=== PATIENT | male | born 1955 | race African-American/Black ===

== ENCOUNTER 2022-09-15 13:06 | Observation (INO) | payer MEDICARE, SELFPAY ==
[2022-09-15] VITALS (21 sets, daily range): BP systolic 130–180; BP diastolic 70–95; PULSE 56–81; RESP 15–22; TEMP 36.2–36.7; O2SAT 97–100; BMI 22.4
--- NOTE | ~2022-09-15 | XR_ITS ---
XR chest 1V portable DATE: 09/15/2022 14:17 INDICATION: Midline chest pain. History of hypertension and myocardial infarction. TECHNIQUE: Portable AP chest on September 15, 2022 at 1408 hours COMPARISON: None FINDINGS: Status post sternotomy and coronary bypass graft surgery. Heart size appears within normal limits. There is aortic arch calcification. There is scattered patchy mild infiltrate and/or atelectasis is noted in the lungs, greater in the lo wer lung zones. No pleural effusion, pulmonary mass congestion or pneumothorax IMPRESSION: Scattered patchy mild bilateral pulmonary infiltrate and/or atelectasis, greater in the l ower lung zones Status post sternotomy and CABG Reviewed, dictated and finalized at location A. IMPRESSION: Scattered patchy mild bilateral pulmonary infiltrate and/or atelect asis, greater in the lower lung zones Status post sternotomy and CABG
--- NOTE | 2022-09-15 13:11 | ECG_ITS ---
Measurements Intervals [place] Rate: 64 P: 62 NE: 173 QRS: -35 QRSD: 98 T: 150 QT: 423 QTc: 439 Interpretive Statements SINUS RHYTHM POSSIBLE LEFT ATRIAL ENLARGEMENT LEFT VENTRICULAR HYPERTROPHY AND ST-T CHANGE [VOLTAGE CRITERIA PLUS ST/T ABNORMALITY] ANTERIOR MYOCARDIAL INFARCTION, AGE INDETERMINATE INFERIOR MYOCARDIAL INFARCTION, PROBABLY OLD ABNORMAL ECG NO PREVIOUS ECG AVAILABLE FOR COMPARISON Electronically Signed On 09-15-2022 15:37:14 CDT by Davon Cole M.D.
[2022-09-15 13:28] LABS: Basophils Percent Auto 0.5 % (0.2-1.2); Eosinophils Absolute Auto 0.2 K/mm3 (0-0.3); Eosinophils Percent Auto 2.1 % (0-4.4); Hemoglobin 13.3 g/dL (14.0-18.0); Immature Granulocyte Absolute 0.01 K/mm3 (0.00-0.031); Immature Granulocyte Percent A 0.1 % (0-0.5); Lymphocytes Absolute Auto 1.64 K/mm3 (0.9-3.2); Lymphocytes Percent Auto 21.3 % (18.3-44.2); Mean Corpuscular HGB Conc 34.1 g/dl (32-36); Mean Corpuscular Hemoglobin 30.8 pg (26-34); Mean Corpuscular Volume 90.3 fl (80-100); Mean Platelet Volume 9.7 fl (7.4-10.4); Monocytes Absolute Auto 0.5 K/mm3 (0.1-0.6); Monocytes Percent Auto 6.1 % (2.6-8.5); Neutrophils Absolute Auto 5.4 K/mm3 (1.3-6.7); Neutrophils Percent Auto 69.9 % (45.5-73.1); Platelet Count Result 186 k/mm3 (150-375); Red Blood Count 4.32 M/mm3 (4.6-6.20); Red Cell Distribution Width 14.5 % (11.5-14.5); White Blood Count 7.7 K/mm3 (4.5-10.0)
[2022-09-15 13:37] LABS: INR 1.2; Prothrombin Time 14.4 Seconds (11.1-14.7)
[2022-09-15 13:39] LABS: Alanine Aminotransferase 16 U/L (6-50); Albumin Level 4.1 g/dL (3.5-5.1); Alkaline Phosphatase 79 U/L (38-126); Anion Gap 5 mmol/L (8-16); Aspartate Amino Transferase 21 U/L (17-59); Bilirubin,Total 0.6 mg/dL (0.2-1.3); Blood Urea Nitrogen 19 mg/dL (9-20); Calcium 9.2 mg/dL (8.4-10.2); Carbon Dioxide 29 mmol/L (22-30); Chloride 107 mmol/L (98-107); Estimated CRCL calculation 44 ml/min; Estimated Glomerular Filt Rate 53; Glucose 131 mg/dL (65-110); Lipase 39 U/L (23-300); Sodium 141 mmol/L (137-145)
[2022-09-15 13:51] LABS: Troponin I 0.016 ng/mL (0.000-0.034)
--- NOTE | 2022-09-15 13:58 | ED.CHESTPAIN ---
HPI - Chest Pain General Chief Complaint: Chest Pain Stated Complaint: chest pain Time Seen by Provider: 09/15/22 13:10 Source: patient and EMS Mode of arrival: EMS Limitations: no limitations History of Present Illness HPI narrative: 67 years old -[place] male presents with retrosternal chest pain, dull aching, tightness started 9 AM this morning the hour later got caught by the police, who brought him to the hospital for chest pain. Patient is telling me that he been having chest pain intermittently over the last for 6 months, did not follow-up with any physician. Patient stated me that she had triple bypass 2016, history of hypertension, hyperlipidemia, currently on aspirin. No anticoagulant medications. 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 Pain worse with activity, slightly better at rest. The pain started this morning at rest while laying down in bed. Related Data Allergies Allergy/AdvReac Type Severity Reaction Status Date / Time Penicillins Allergy Difficulty Verified 09/15/22 13:10 Breathing Review of Systems Review of Systems: All systems reviewed & are unremarkable except as noted in HPI and below PMFSH Family History Family History (Updated 09/15/22 @ 20:07 by Fide Cook RN) Father Hypertension Asthma , Onset Age: 56 Social History Social History Years smoked: 50 Smoking status: Current every day smoker Tobacco type: cigarettes Alcohol intake: former Substance use: former Substance use type: marijuana and crack/cocaine Lack of Transportation: YES Lack of Food: Sometimes True Current Housing: I Have Housing Concerned About Future Housing: No Difficulty Paying Gas/Electric Bills: YES Difficulty Paying for Meds: YES Currently Unemployed: No Education: Associate Degree Difficulty w/ Childcare or Family Care: No Spiritual care concerns: No Exam Narrative: General appearance: Well-developed, well-nourished Skin: Normal color Head: Normocephalic, nontraumatic Eyes: Clear conjunctiva ENT: Oropharynx normal, ears normal, nose normal Neck: Supple, nontender Chest and respiratory: Airway patent, no respiratory distress, no accessory muscle use Heart: Regular rate/rhythm Abdomen: Soft, nontender, no organomegaly, quiet bowel sounds Vascular: Normal peripheral pulses, normal capillary refill. Musculoskeletal: Normal range of motion, nontender back Neurologic: Alert and oriented ?3, [employer] is normal as tested, no gross motor deficit Course Reevaluation(s) Reevaluation #1: Currently patient chest pain is 0 out of 10 he would like to have a meal. Date: 09/15/22 Time: 16:54 Vital Signs Vital signs: Vital Signs Temperature 36.6 C 09/15/22 12:58 Pulse Rate 67 09/15/22 12:58 Respiratory Rate 22 H 09/15/22 12:58 Blood Pressure 161/90 H 09/15/22 12:58 Pulse Oximetry 97 09/15/22 12:58 Temperature 36.2 C L 09/15/22 20:00 Pulse Rate 64 09/15/22 20:00 Respiratory Rate 20 09/15/22 20:00 Blood Pressure 130/90 09/15/22 20:00 Pulse Oximetry 100 09/15/22 20:00 MDM - Chest Pain MDM Narrative Medical decision making narrative: Patient presents with intermittent chest pain for the last 4 to 6 months, started again at 9 AM, was 10 out of 10 was worse than before. Differential diagnosis coronary artery disease, pneumonia, costochondritis, atypical chest pain, pneumothorax. Work-up today showed normal CBC, creatinine of 1.6, no old records for comparison. BMP [id number]
[2022-09-15] MEDS: METOPROLOL TARTRATE 50 MG TAB 25 MG PO (14:13)
[2022-09-15] MEDS: ONDANSETRON INJ 4 MG/2 ML VIAL IV PUSH (14:14)
[2022-09-15] MEDS: NITROGLYCERIN SL 0.4 MG TABLET SUBLINGUAL (14:14)
[2022-09-15 15:12] LABS: NT Pro B Type Natriuretic Pept 1670 pg/mL (19.9-100)
--- NOTE | 2022-09-15 16:14 | PC.NURSE ---
Patient reports that he is going to be calling home before we can draw any other blood. Patient walked to phone without difficulty and in no distress.
[2022-09-15 16:49] LABS: Troponin I 0.019 ng/mL (0.000-0.034)
[2022-09-15] MEDS: FUROSEMIDE INJ 40 MG/4 ML VIAL IV PUSH (18:26)
[2022-09-15 19:41] LABS: Troponin I 0.019 ng/mL (0.000-0.034)
[2022-09-15] MEDS: NITROGLYCERIN OINTMENT 1 INCH DOSE TRANSDERM (19:46)
--- NOTE | 2022-09-15 20:00 | PM.IMHP ---
H&P: HPI History of Present Illness Date/Time: 09/15/22 20:00 Chief Complaint: Chest pain. Narrative: This is a 67-year-old male smoker with hypertension, hyperlipidemia, and coronary artery disease status post 3 vessel bypass in 2016 who presented to the emergency department via EMS for evaluation of chest pain. Patient provides the following history. He was in the custody of police this morning and he was brought to the ER after he started complaining of nonradiating left anterior chest pain. At times it is sharp and shooting in nature but it is mostly heavy ?like an elephant is sitting on there? and is associated with shortness of breath, nausea, and some sweats. He reports having daily chest pain over the last 6 months or so which occurs both with a activity and at rest. It seems to be self-limiting and he does not have nitroglycerin at home to take. He denies fever, chills, sweats, cold and flu symptoms, syncope, near syncope, sensations of racing heart, fluttering, orthopnea, paroxysmal nocturnal dyspnea, lower extremity edema, and vomiting. Initial troponin on arrival to the ED was within normal limits. EKG shows criteria for LVH, probably old inferior IA, and an age-indeterminate anterior IA. He is being admitted in this setting for close monitoring and to rule out acute coronary syndrome. At the time my evaluation he reports feeling better after receiving nitroglycerin. Of note the patient admits that he is not always compliant with his medications. Review of Systems Review of Systems: Twelve systems were reviewed and are negative except for as per HPI. [facility] Past Medical History Medical History (Updated 09/16/22 @ 00:42 by Leah Roche PA-C) Cerebrovascular accident Coronary artery disease Depression with anxiety Hyperlipidemia Hypertension Surgical History Surgical History (Updated 09/16/22 @ 00:40 by Leah Roche PA-C) History of arthroscopic knee surgery History of coronary artery bypass graft x 3 (2016) Reports having a bioprosthetic valve replacement at that time, unknown which valve. History of tonsillectomy Family History Family History Father Hypertension Asthma , Onset Age: 56 Social History Social History (Updated 09/16/22 @ 00:41 by Leah Roche PA-C) Social History: Surrogate medical decision maker: jeffery Tobias. Code status: Full code. Years smoked: 50 Smoking status: Current every day smoker Tobacco type: cigarettes Alcohol intake: former Substance use: former Substance use type: marijuana and crack/cocaine Lack of Transportation: YES Lack of Food: Sometimes True Current Housing: I Have Housing Concerned About Future Housing: No Difficulty Paying Gas/Electric Bills: YES Difficulty Paying for Meds: YES Currently Unemployed: No Education: Associate Degree Difficulty w/ Childcare or Family Care: No Additional living arrangements comments: Lives with maddy and mother in the [place]. 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 Spiritual care concerns: No Meds Home Medications and Allergies Home Medications Medication Instructions Recorded Confirmed Type aspirin 81 mg chewable tablet 81 mg PO DAILY 09/15/22 09/15/22 History atorvastatin 80 mg tablet (Lipitor) 40 mg PO HS 09/15/22 09/15/22 History carvedilol 25 mg tablet 12.5 mg PO BID 09/15/22 09/15/22 History diclofenac sodium 1 % topical gel 4 g topical QID PRN Pain 09/15/22 09/15/22 History isosorbide mononitrate 60 mg 60 mg PO DAILY 09/15/22 09/15/22 History tablet,extended release 24 hr meloxicam 15 mg tablet 15 mg PO DAILY 09/15/22 09/15/22 History nitroglycerin 0.4 mg sublingual 0.4 mg sublingual Q5-15M PRN Chest 09/15/22 09/15/22 History tablet Pain Allergies Allergy/AdvReac Type Severity Reaction Status Date / Time Penicillins Allergy Difficulty Verified
--- NOTE | 2022-09-15 20:03 | ADMGEN ---
This patient, Raul Jaffe, was admitted to IMU Room 209-01. Patient/family oriented to hospital policies and general routines including ID bracelet, bed and alarms, visiting hours, pain management, procedures, bathroom and other care routines, personal items, smoking policy, room service/diet, and visiting hours. Information on how to activate the Rapid Response Team has been discussed. Patient/Family are encouraged to report perceived risks to care and to ask questions if they do not understand what they are told or what they should do.
[2022-09-16] VITALS (10 sets, daily range): BP systolic 129–156; BP diastolic 62–84; PULSE 60–80; RESP 20; TEMP 35.9–36.4; O2SAT 95–99
[2022-09-16] MEDS: ACETAMINOPHEN 325 MG TABLET 650 MG PO ×2 (00:44→08:56)
[2022-09-16 04:58] LABS: Hematocrit 39.9 % (42.0-52.0); Hemoglobin 13.8 g/dL (14.0-18.0); Mean Corpuscular HGB Conc 34.6 g/dl (32-36); Mean Corpuscular Hemoglobin 30.5 pg (26-34); Mean Corpuscular Volume 88.3 fl (80-100); Mean Platelet Volume 10.2 fl (7.4-10.4); Platelet Count Result 204 k/mm3 (150-375); Red Blood Count 4.52 M/mm3 (4.6-6.20); Red Cell Distribution Width 14.5 % (11.5-14.5); White Blood Count 7.5 K/mm3 (4.5-10.0)
[2022-09-16 05:12] LABS: Anion Gap 2 mmol/L (8-16); Blood Urea Nitrogen 22 mg/dL (9-20); Calcium 8.6 mg/dL (8.4-10.2); Carbon Dioxide 33 mmol/L (22-30); Chloride 101 mmol/L (98-107); Estimated CRCL calculation 44 ml/min; Estimated Glomerular Filt Rate > 60; Glucose 106 mg/dL (65-110); Magnesium 2.1 mg/dL (1.6-2.3); Potassium 3.3 mmol/L (3.4-5.0); Sodium 136 mmol/L (137-145)
--- NOTE | 2022-09-16 06:00 | ECG_ITS ---
Measurements Intervals [place] Rate: 62 P: 70 RI: 173 QRS: -37 QRSD: 104 T: 168 QT: 444 QTc: 453 Interpretive Statements SINUS RHYTHM POSSIBLE LEFT ATRIAL ENLARGEMENT LEFT VENTRICULAR HYPERTROPHY AND ST-T CHANGE INFERIOR MYOCARDIAL INFARCTION, PROBABLY OLD CANNOT RULE OUT ANTEROSEPTAL INFARCTION, AGE INDETERMINATE ABNORMAL ECG COMPARED TO ECG 09/15/2022 13:07:40 NO SIGNIFICANT CHANGES Electronically Signed On 09-16-2022 13:50:40 CDT by Davon Cole M.D.
[2022-09-16] MEDS: ENOXAPARIN 40 MG/0.4 ML SYRINGE SUB-Q (08:55)
[2022-09-16] MEDS: ISOSORBIDE MONONITRATE 60 MG TAB.ER.24H PO (08:55)
[2022-09-16] MEDS: carvediloL 12.5 MG TABLET PO (08:55)
[2022-09-16] MEDS: ASPIRIN 81 MG CHEWABLE TABLET PO (08:56)
[2022-09-16] MEDS: MELOXICAM 7.5 MG TABLET 15 MG PO (08:56)
--- NOTE | 2022-09-16 11:58 | PM.DS ---
DS: Admitting Diagnosis Discharge Date September 16, 2022 Admitting Diagnosis Chest pain DS: Discharge Diagnosis Discharge Diagnosis (1) Chest pain: Code(s): R07.9 - Chest pain, unspecified Status: Acute Assessment and Plan: Noncompliance to medications. 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 (2) Coronary artery disease: Code(s): I25.10 - Atherosclerotic heart disease of [place] coronary artery without angina pectoris Status: Acute Assessment and Plan: Status post 3 vessel bypass in [facility] in 2016. Continue aspirin, statin, beta karly, and long-acting nitrate. (3) Hypertension: Code(s): I10 - Essential (primary) hypertension Status: Acute Assessment and Plan: Noncompliance at times. Follow-up primary care physician. (4) Hyperlipidemia: Code(s): E78.5 - Hyperlipidemia, unspecified Status: Acute Assessment and Plan: Continue statin; LFTs within normal limits. (5) Renal insufficiency: Code(s): N28.9 - Disorder of kidney and ureter, unspecified Status: Acute Assessment and Plan: Will need to follow up with primary care physician (6) Pulmonary infiltrates: Code(s): R91.8 - Other nonspecific abnormal finding of lung field Status: Acute Assessment and Plan: Patient received 1 dose of Lasix his respiratory status is back to baseline. He denies any shortness of breath. He denies any chest pain. DS: Summary Hospital Course Hospital Course: Patient came with chest pain workup unrevealing. 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 Patient has a history noncompliance Time Spent with Patient Time attestation: Total time spent providing and/or coordinating discharge services: Exam Narrative: General: Well-developed male in the semi-Clark position in bed in no distress. Weight: 66.7 kg. BMI: 22.4. HEENT: PERRL, EOMI. Sclera anicteric. Oral mucosa moist. Oropharynx clear. Neck: Supple. No obvious bruits or JVD. Respiratory: Lungs are clear to auscultation bilaterally. Cardiovascular: Regular rate and rhythm with S1-S2. Soft murmur at the upper sternal border. Well heard sternotomy. No tenderness to palpation over the chest wall. Gastrointestinal: Abdomen is soft, nontender, and nondistended with positive bowel sounds. Skin: Warm and dry. No rash or lesions on limited exam. Extremities: No cyanosis, clubbing, or edema. Radial and pedal pulses intact. Neurological: Alert. Cranial nerves 2-12 are grossly intact. No gross focal deficits to casual conversation. Psychiatric: Pleasant and cooperative with normal mood and affect. Judgment and insight intact. DS: Data Data Completed and Pending Labs on day of discharge: Labs from last 24 hours 09/16/22 09/16/22 09/15/22 04:08 04:08 19:11 WBC 7.5 RBC 4.52 L Hgb 13.8 L Hct 39.9 L MCV 88.3 MCH 30.5 MCHC 34.6 RDW 14.5 Plt Count 204 MPV 10.2 Immature Gran % (Auto) Neut % (Auto) Lymph % (Auto) Kimble % (Auto) Eos % (Auto) Baso % (Auto) Lymph # (Auto) Kimble # (Auto) Eos # (Auto) Baso # (Auto) Abs Immat Gran (auto) Absolute Neuts (auto) Absolute Nucleated RBC Nucleated RBC % PT INR APTT Sodium 136 L Potassium 3.3 L Chloride 101 Carbon Dioxide 33 H Anion Gap 2 L BUN 22 H Creatinine 1.40 H Estim Creat Clear Calc 44 Estimated GFR > 60 Glucose 106 Calcium 8.6 Magnesium 2.1 Total Bilirubin AST ALT Alkaline Phosphatase Troponin I 0.019 NT-Pro-B Natriuret Pep Total Protein Albumin Lipase 09/15/22 09/15/22 09/15/22 16:22 13:23 13:23 WBC RBC Hgb Hct MCV MCH MCHC RDW Plt Count MPV Immature Gran % (Auto)
== END 2022-09-16 13:00 | disposition home or self-care (01) ==
LOC: ANHED 18:33 → ANHIMU 19:43
PROVIDERS: Physician Assistant; Admitting Provider Internal Medicine; Emergency Provider Emergency Medicine; Visit Provider Chiropractor
DX: R07.9 Chest pain, unspecified (principal); I25.10 Atherosclerotic heart disease of native coronary artery without angina pectoris; Z95.1 Presence of aortocoronary bypass graft; I10 Essential (primary) hypertension; E78.5 Hyperlipidemia, unspecified; N28.9 Disorder of kidney and ureter, unspecified; R91.8 Other nonspecific abnormal finding of lung field; I25.2 Old myocardial infarction; Z95.2 Presence of prosthetic heart valve; F17.210 Nicotine dependence, cigarettes, uncomplicated; F12.11 Cannabis abuse, in remission; F14.21 Cocaine dependence, in remission; R94.31 Abnormal electrocardiogram [ECG] [EKG]; Z79.82 Long term (current) use of aspirin; Z79.899 Other long term (current) drug therapy
CPT/HCPCS: 36415; 71045; 80048; 80053; 83690; 83735; 83880; 84484; 85025; 85027; 85610; 85730; 93005; 96372; 96374; 96375; 99285; A9270; G0378; J1650; J1940; J2405